=== PATIENT | female | born 1965 | race Two or more races ===

== ENCOUNTER 2021-11-17 10:36 | Emergency (ER) | payer MEDICAID ==
[~2021-11-17] VITALS: Ht 170.2 cm; Wt 58.1 kg
[2021-11-17 10:45] VITALS: BP 143/87
[2021-11-17] MEDS ORDERED: AMOX-277 PO (11:39)
[2021-11-17] MEDS ORDERED: PROM1SOL4 PO (11:39)
[2021-11-17] MEDS ORDERED: cefTRIAXone SOD 1,000 MG VL IM ONE (11:45)
== END 2021-11-17 12:27 | disposition home or self-care (01) ==
LOC: ER 10:36
DX: J20.9 Acute bronchitis, unspecified (principal); J03.90 Acute tonsillitis, unspecified; H66.91 Otitis media, unspecified, right ear; Z79.2 Long term (current) use of antibiotics; Z79.899 Other long term (current) drug therapy
CPT/HCPCS: 71046; 96372; 99283; J0696